=== PATIENT | female | born 1975 | race Caucasian/White ===

== ENCOUNTER 2024-07-12 14:57 | Emergency (ER) | payer OTHER ==
[2024-07-12 15:44] LABS: Absolute Basophils 0.1 K/uL (0-0.5); Absolute Eosinophils 0.1 K/uL (0-0.5); Absolute Lymphocytes (CBC) 2.3 K/uL (0.7-4.9); Absolute Monocytes 0.6 K/uL (0.1-1.3); Absolute Neutrophil 6.7 K/uL (1.8-8.0); Basophils % 0.9 % (0-1.3); Eosinophils % 1.3 % (0-4.4); Hematocrit 37.3 % (36.0-45.0); Hemoglobin 12.8 g/dL (12.0-15.0); Lymphocytes % 23.4 % (15.3-44.8); MCH 30.3 pg (27.0-35.0); MCHC 34.4 g/dL (32.0-36.0); MPV 7.8 fL (7.6-11.3); Monocytes % 5.9 % (3.3-12.3); Neutrophils % 68.5 % (41.7-73.7); Nucleated Red Blood Cells % 0.1 % (0-0); Platelets 245 thou/uL (152-406); RBC Red Blood Cell Count 4.24 M/uL (3.86-4.86)
[2024-07-12 15:49] LABS: Barbiturates NEGATIVE (NEGATIVE); Benzodiazepines NEGATIVE (NEGATIVE); Cocaine NEGATIVE (NEGATIVE); METHAMPHETAM NEGATIVE (NEGATIVE); Methadone NEGATIVE (NEGATIVE); Opiates NEGATIVE (NEGATIVE); Phencyclidine NEGATIVE (NEGATIVE); THC Cannibis POSITIVE (NEGATIVE)
[2024-07-12 15:59] LABS: PT Prothrombin Time 11.8 SECONDS (10.0-13.0); PTT, Activated Partial Thromb 33.9 SECONDS (24.3-36.9); Protime INR 1.04
[2024-07-12 16:04] LABS: ALT/SGPT 22 U/L (13-56); AST/SGOT 17 U/L (15-37); Albumin 3.4 g/dL (3.4-5.0); Albumin/Globulin Ratio 0.8 (1.1-1.8); Alkaline Phosphatase 72 U/L (45-117); Anion Gap 10.3 mEq/L (5.0-15.0); BUN Blood Urea Nitrogen 12 mg/dL (7-18); Bicarbonate 25 mEq/L (21-32); Bilirubin Total 0.3 mg/dL (0.2-1.0); Globulin 4.5 g/dL (2.3-3.5); Glomerular Filtration Rate 87 ml/min (=/>90); Glucose Level 103 mg/dL (74-106); Potassium 4.3 mEq/L (3.5-5.1); Protein, Total 7.9 g/dL (6.4-8.2); Sodium Level 137 mEq/L (136-145)
[2024-07-12 16:05] LABS: Bilirubin Direct < 0.2 mg/dL (0-0.2); Bilirubin Indirect, Calculated 0.1 mg/dL (0.2-0.8)
--- NOTE | 2024-07-12 16:39 | ER ---
Nurse's Notes [facility] Name: Berta Fink Age: 48 yrs Sex: Female : 1975 Arrival Date: 07/12/2024 Time: 14:57 Bed 20 Private MD: Diagnosis: Suicidal ideations Presentation: 07/12 15:06 Chief complaint: Patient states: suicidal ideations since being "off my medicines" me1 since February 2024, pt reports she moved to [place] from [place] and has had a hard time getting her home medications refilled. Pt reports her plan is "to jump off tall building". 15:06 Coronavirus screen: At this time, the client does not indicate any symptoms associated aa5 with coronavirus-19. Ebola Screen: Patient denies travel to an Ebola-affected area in the 21 days before illness onset. Risk Assessment: Do you want to hurt yourself or someone else? Patient reports no desire to harm self or others. Onset of symptoms was February 2024. 15:06 Acuity: LENNOX 2 aa5 15:06 Method Of Arrival: EMS: [facility] aa5 17:18 Initial Sepsis Screen: Does the patient meet any 2 criteria? No. Patient's initial me1 sepsis screen is negative. Does the patient have a suspected source of infection? No. Patient's initial sepsis screen is negative. 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 LMP N/A - Post-menopause, Not me1 Historical: - Allergies: 15:06 Compazine; aa5 15:06 Codeine; aa5 - Home Meds: 17:10 citalopram 30 mg capsule 1 cap daily [Active]; Depakote 500 mg Oral tablet, delayed me1 release (enteric coated) 1 tabs Q Day [Active]; levothyroxine 25 mcg tablet 1 tab daily for hypothyroidism [Active]; atenolol 100 mg Oral tablet 1 tab daily [Active]; 18:16 Seroquel 50 mg Oral tablet 1 tab as needed [Active]; me1 18:28 methylphenidate HCl 20 mg Oral tablet, extended release 1 tab daily for me1 attention-deficit hyperactivity disorder [Active]; - PMHx: 15:06 Depressive disorder; Psychosis; Seizure; Previous hx of fentanyl patch dependence ; Pt aa5 states "no narcotics please"; Hypothyroidism; - Immunization history:: Adult Immunizations unknown. - Infectious Disease History:: Denies. - Social history:: Smoking status: Patient reports the use of cigarette tobacco products, denies chronic smoking, but will smoke occasionally, Patient/guardian denies using alcohol, street drugs. Screenin:05 [facility] ED Fall Risk Assessment (Adult) History of falling in the last 3 months, me1 including since admission No falls in past 3 months (0 pts) Confusion or Disorientation No (0 pts) Intoxicated or Sedated No (0 pts) Impaired Gait No (0 pts) Mobility Assist Device Used No (0 pt) Altered Elimination No (0 pt) Score/Fall Risk Level 0 - 2 = Low Risk Maintained a safe environment, Provided non-skid footwear, Hourly rounding (assess needs \\T\\ fall precautionary measures) done. Abuse screen: Denies threats or abuse. Nutritional screening: No deficits noted. Tuberculosis screening: No symptoms or risk factors identified. Assessment: 15:05 General: Appears comfortable, well groomed, well developed, well nourished, Behavior is me1 cooperative, appropriate for age, flat, quiet, Reports suicidal ideations since being "off my medicines" since February 2024, pt reports she moved to [place] from [place] and has had a hard time getting her home medications refilled. Pt reports her plan is "to jump off tall building". Pain: Denies pain. Neuro: Level of Consciousness is awake, alert, obeys commands, Oriented to person, place, time, situation, Appropriate for age. Cardiovascular: Patient's skin is warm and dry. Respiratory: Airway is patent Respiratory effort is even, unlabored, Respiratory pattern is regular, symmetrical. GI: No signs and/or symptoms were reported involving the gastrointestinal system. : No signs and/or symptoms were reported regarding the genitourinary system. EENT: No signs and/or symptoms were reported regarding the EENT system. Derm: Skin is intact, is healthy with good turgor, Skin is pink, warm \\T\\ dry. Musculoskeletal: No signs and/or symptoms reported regarding the musculoskeletal system. 18:18 Reassessment: Nurse to nurse done with Thea at [facility]. States they will accept me1 her. Transferred back to community development director for acceptance information. Psych: 15:05 [place] Suicide Severity Screening: In the past month, have you wished you were me1 or wished you could go to sleep and not wake up? Patient responds "yes." Based off the client's responses additional C-SSRS screening is required. "In the past month, have you actually had any thoughts of killing yourself?" Patient responds "yes." Based off the client's response additional [place] suicide severity screening questions to be further documented on paper forms. "In your lifetime, have you ever done anything, started to do anything, or prepared to do anything to end your life?" Patient responds "no.". Subjective: Patient's mood is sad, Delusions are denied, Hallucinations are denied Having thoughts of homicide. Denies HI. Objective: Patient is cooperative, Speech is normal, Affect is flat. Interventions: Removed personal items and placed in bag. Patient placed in hospital gown. Searched person for dangerous items. Urine collected and sent for urine drug test. Belonging list filled out. Safety Checks: Personal items have been removed. Door is open. No visitors are present at this time. Pt denies substance abuse HX of fentanyl patch dependence. Commitment: Patient will be a voluntary commitment. Vital Signs: 15:06 BP 131 / 73; Pulse 63; Resp 18 S; Temp 97.6(TE); Pulse Ox 99% on R/A; Weight 80.74 kg aa (R); Height 5 ft. 2 in. (R); 19:11 BP 141 / 86; Pulse 75; Resp 16; Temp 98.6; Pulse Ox 99% ; me1 15:06 Body Mass Index 32.56 (80.74 kg, 157.48 cm) aa5 ED Course: 15:05 Patient has correct armband on for positive identification. Bed in low position. Call [facility] [place] [place] light in reach. Side rails up X 1. Provided Education on: POC. Verbalized understanding.. 15:05 No provider procedures requiring assistance completed. me1 15:06 Patient arrived in ED. nc1 15:06 Arm band placed on Patient placed in an exam room, on a stretcher. aa5 15:07 James Doss DO is Attending Physician. nc1 15:18 Triage completed. aa5 15:34 Initial lab(s) drawn, by nc, sent to lab. Inserted saline lock: 24 gauge in right upper aa5 arm, using aseptic technique. Blood collected. Flushed with 10 mL NS. 17:05 Cha Rodrigues, RN is Primary Nurse. me1 18:43 pt accepted in transfer to [facility] by dr apodaca admin approval given by luther alcaraz. bd 19:05 Removal of peripheral IV. Catheter intact, dressing applied. td1 19:14 Safety checks: Items removed: Door open/sign placed on door: Sitter present:. td1 19:39 IV discontinued, intact, bleeding controlled, No redness/swelling at site. Pressure me1 dressing applied. Administered Medications: No medications were administered Medication: 15:05 VIS not applicable for this client. me1 Outcome: 16:39 ER care complete, transfer ordered by MD. ms3 19:28 Patient left the ED. sb4 19:39 Transferred by ground EMS Note: [facility] me1 19:39 Condition: stable 19:39 Instructed on the need for transfer, Signatures: Valerie Gimenez Audri, RN RN aa5 James Doss DO DO ms3 Bettina Schmidt, PA-C PA-C sb4 Cha Rodrigues, RN RN me1 Eleuterio Richard td1 Corrections: (The following items were deleted from the chart) 15:41 15:06 80.74 kg Reported; Height 5 ft. 2 in. Reported; BMI: 32.5; aa5 aa5 17:18 15:06 Chief complaint: Patient states: suicidal ideations since being "off my me1 medicines" since February 2024, pt reports she moved to [place] from [place] and has had a hard time getting her home medications refilled. Pt reports her plan is "to jump off tall building". aa5 17:50 15:06 Chief complaint: Patient states: suicidal ideations since being "off my me1 medicines" since February 2024, pt reports she moved to [place] from [place] and has had a hard time getting her home medications refilled. Pt reports her plan is "to jump off tall building". me1
--- NOTE | 2024-07-12 16:39 | EDPHYS ---
Physician Documentation [facility] Name: Berta Fink Age: 48 yrs Sex: Female : 1975 Arrival Date: 07/12/2024 Time: 14:57 Bed 20 Private MD: ED Physician James Doss SHIPPING HAND: 07/12 19:39 LMP N/A - Post-menopause, Not me1 Historical: - Allergies: 15:06 Compazine; aa5 15:06 Codeine; aa5 - Home Meds: 17:10 citalopram 30 mg capsule 1 cap daily [Active]; Depakote 500 mg Oral tablet, delayed me1 release (enteric coated) 1 tabs Q Day [Active]; levothyroxine 25 mcg tablet 1 tab daily for hypothyroidism [Active]; atenolol 100 mg Oral tablet 1 tab daily [Active]; 18:16 Seroquel 50 mg Oral tablet 1 tab as needed [Active]; me1 18:28 methylphenidate HCl 20 mg Oral tablet, extended release 1 tab daily for me1 attention-deficit hyperactivity disorder [Active]; - PMHx: 15:06 Depressive disorder; Psychosis; Seizure; Previous hx of fentanyl patch dependence ; Pt aa5 states "no narcotics please"; Hypothyroidism; - Immunization history:: Adult Immunizations unknown. - Infectious Disease History:: Denies. - Social history:: Smoking status: Patient reports the use of cigarette tobacco products, denies chronic smoking, but will smoke occasionally, Patient/guardian denies using alcohol, street drugs. Vital Signs: 15:06 BP 131 / 73; Pulse 63; Resp 18 S; Temp 97.6(TE); Pulse Ox 99% on R/A; Weight 80.74 kg aa5 (R); Height 5 ft. 2 in. (R); 19:11 BP 141 / 86; Pulse 75; Resp 16; Temp 98.6; Pulse Ox 99% ; me1 15:06 Body Mass Index 32.56 (80.74 kg, 157.48 cm) aa5 MDM: 15:21 Medical Screening Exam initiated ms3 07/12 15:22 Order name: Acetaminophen; Complete Time: 16:39 ms3 07/12 15:22 Order name: BMP; Complete Time: 16:39 ms3 02/24 15:22 Order name: CBC with Diff; Complete Time: 16:39 ms3 07/12 15:22 Order name: Ethanol; Complete Time: 16:39 ms07/12 15:22 Order name: Hepatic Function; Complete Time: 16:39 ms07/12 15:22 Order name: Protime (+inr); Complete Time: 16:39 ms3 07/12 15:22 Order name: Ptt, Activated; Complete Time: 16:39 ms3 07/12 15:22 Order name: Salicylate; Complete Time: 16:39 ms07/12 15:22 Order name: Urine Drug Screen; Complete Time: 16:39 ms07/12 15:22 Order name: EKG - Nurse/Tech; Complete Time: 18:59 ms07/12 15:22 Order name: IV Saline Lock; Complete Time: 15:37 ms07/12 15:22 Order name: Labs collected and sent; Complete Time: 15:37 ms07/12 15:22 Order name: O2 Per Protocol; Complete Time: 15:37 ms07/12 15:22 Order name: O2 Sat Monitoring; Complete Time: 15:37 07/12 15:22 Order name: Suicide Precautions; Complete Time: 15:37 ms07/12 15:22 Order name: Suicide Screening ([place]); Complete Time: 17:16 ms3 Administered Medications: No medications were administered Disposition Summary: 07/12/24 16:39 Transfer Ordered Notes: Transfer Location: [facility] ms3 Reason: Higher level of care ms3 Condition: Stable ms3 Problem: new ms3 Symptoms: are unchanged ms3 Accepting Physician: (07/12/24 19:28) sb4 Diagnosis - Suicidal ideations ms3 Forms: - Medication Reconciliation Form ms3 - SBAR form ms3 Signatures: Dispatcher [employer] EDTracie Kelsey, RN RN aa5 James Doss DO DO ms3 Bettina Schmidt PA-C PA-C sb4 Cha Rodrigues, RN RN me1 Corrections: (The following items were deleted from the chart) 15:22 15:22 ACETAMINOPHEN+C.LAB.BRZ ordered. EDMS EDMS 15:22 15:22 BASIC METABOLIC PANEL+C.LAB.BRZ ordered. EDMS EDMS 15:22 15:22 CBC+H.LAB.BRZ ordered. EDMS EDMS 15:22 15:22 ETHANOL+C.LAB.BRZ ordered. EDMS EDMS 15:22 15:22 HEPATIC FUNCTION+C.LAB.BRZ ordered. EDMS EDMS 15:22 15:22 PROTIME (+INR)+COAG.LAB.BRZ ordered. EDMS EDMS 15:22 15:22 PTT, ACTIVATED+COAG.LAB.BRZ ordered. EDMS EDMS 15:22 15:22 SALICYLATE+C.LAB.BRZ ordered. EDMS EDMS 15:22 15:22 URINE DRUG SCREEN+UC.LAB.BRZ ordered. EDMS EDMS 19:28 16:39 Dr ms3 sb4
[2024-07-12 19:32] VITALS: O2SAT 99
[2024-07-12 19:34] VITALS: BP 141/86; TEMP 98.6
== END 2024-07-12 19:28 ==
LOC: ER 14:57
DX: R45.851 Suicidal ideations (principal); F32.A Depression, unspecified; F17.210 Nicotine dependence, cigarettes, uncomplicated
CPT/HCPCS: 36415; 80048; 80076; 80143; 80179; 80307; 82077; 85025; 85610; 85730; 93005; 99285